=== PATIENT | male | born 1960 | race African-American/Black ===

== ENCOUNTER 2024-12-05 19:14 | Inpatient (IN) | payer OTHER ==
[~2024-12-05] VITALS: Ht 182.9 cm; Wt 112.5 kg
[2024-12-05 19:17] VITALS: O2SAT 99
[2024-12-05 19:44] LABS: BASOPHILS % 0.7 % (0.0-2.0); EOSINOPHILS % 2.9 % (0.0-5.0); HEMATOCRIT. 42.7 % (42.0-52.0); HEMOGLOBIN. 14.2 g/dL (14.0-18.0); LYMPHOCYTES % 46.9 % (20.0-50.0); MEAN CORPUSCULAR HEMOGLOBIN 27.6 pg (28.0-32.0); MEAN CORPUSCULAR HGB CONC 33.2 g/dL (31.0-37.0); MEAN CORPUSCULAR VOLUME 83.4 fL (80.0-94.0); MEAN PLATELET VOLUME 10.4 fl (7.4-10.4); MONOCYTES % 6.3 % (2.0-8.0); NEUTROPHILS % 43.2 % (40.0-76.0); PLATELET 104 x1000/uL (130-400); RED BLOOD CELL COUNT 5.12 mill/uL (4.7-6.1); RED CELL DISTRIBUTION WIDTH 15.2 % (11.6-14.6); WHITE BLOOD COUNT 4.5 x1000/uL (4.5-11.0)
[2024-12-05] MEDS: SODIUM CHLORIDE 0.9% 1,000 ML IV ONE (19:44)
[2024-12-05] MEDS: ONDANSETRON HCL 4MG/2ML INJ IV ONE (19:44)
[2024-12-05 19:54] LABS: CHLORIDE 103 mEq/L (98-107); POTASSIUM 3.1 mEq/L (3.5-5.1); SODIUM 140 mEq/L (136-145)
[2024-12-05 19:55] LABS: CALCIUM 8.9 mg/dL (8.7-10.4); CARBON DIOXIDE 23 mEq/L (21-32)
[2024-12-05 20:00] LABS: CREATININE 1.2 mg/dL (0.6-1.3); GLUCOSE 165 mg/dL (70-105); UREA NITROGEN BLOOD 12 mg/dL (9-23)
[2024-12-05 20:01] LABS: ETHANOL BLOOD < 10 mg/dL (<10)
[2024-12-05 20:02] LABS: ALANINE AMINOTRANSFERASE 23 IU/L (10-49); ALBUMIN 4.2 g/dL (3.2-4.8); ASPARTATE AMINOTRANSFERASE 25 IU/L (<34); BILIRUBIN DIRECT 0.2 mg/dL (<=3.0); BILIRUBIN TOTAL 0.7 mg/dL (0.1-1.0); PROTEIN TOTAL 7.3 g/dL (6.0-8.3)
[2024-12-05 20:27] LABS: TROPONIN I HIGH SENSITIVITY < 4 ng/L (3.0-53)
[2024-12-05 20:29] LABS: LACTIC ACID 4.1 mmol/L (0.4-2.0)
[2024-12-05] MEDS: POTASSIUM CHLORIDE 20MEQ/PACKET PO ONE (23:07)
[2024-12-05 23:34] VITALS: BP 142/84; PULSE 75; RESP 19; TEMP 36.5
[2024-12-06] VITALS (7 sets, daily range): BP systolic 121–137; BP diastolic 60–82; PULSE 54–75; RESP 17–20; TEMP 35.9–36.7; O2SAT 96–99
[2024-12-06] MEDS ORDERED: TAMS-11 MT (00:09)
[2024-12-06] MEDS: METOPROLOL TARTRATE 50MG TABLET PO SCH (01:33)
[2024-12-06 05:53] LABS: CARBON DIOXIDE 25 mEq/L (21-32); CHLORIDE 109 mEq/L (98-107); POTASSIUM 4.4 mEq/L (3.5-5.1); SODIUM 143 mEq/L (136-145)
[2024-12-06 05:54] LABS: CALCIUM 8.8 mg/dL (8.7-10.4)
[2024-12-06 05:59] LABS: CREATININE 0.8 mg/dL (0.6-1.3); GLUCOSE 91 mg/dL (70-105); TROPONIN I HIGH SENSITIVITY 9 ng/L (3.0-53)
[2024-12-06 06:00] LABS: LDL CHOLESTEROL 73 mg/dL (5-100); TRIGLYCERIDE 130 mg/dL (0-150); UREA NITROGEN BLOOD 10 mg/dL (9-23)
[2024-12-06 06:01] LABS: CHOLESTEROL 143 mg/dL (<200)
[2024-12-06 06:02] LABS: HDL CHOLESTEROL 38 mg/dL (>55)
[2024-12-06 06:03] LABS: THYROID STIMULATING HORMONE 1.05 uIU/mL (0.55-4.78)
[2024-12-06 06:25] LABS: BASOPHILS % 0.4 % (0.0-2.0); EOSINOPHILS % 0.9 % (0.0-5.0); HEMATOCRIT. 42.6 % (42.0-52.0); LYMPHOCYTES % 22.2 % (20.0-50.0); MEAN CORPUSCULAR HEMOGLOBIN 27.1 pg (28.0-32.0); MEAN CORPUSCULAR HGB CONC 32.8 g/dL (31.0-37.0); MEAN CORPUSCULAR VOLUME 82.5 fL (80.0-94.0); MEAN PLATELET VOLUME 11.2 fl (7.4-10.4); NEUTROPHILS % 70.5 % (40.0-76.0); PLATELET 113 x1000/uL (130-400); RED BLOOD CELL COUNT 5.16 mill/uL (4.7-6.1); RED CELL DISTRIBUTION WIDTH 15.1 % (11.6-14.6); WHITE BLOOD COUNT 5.5 x1000/uL (4.5-11.0)
[2024-12-06] MEDS: ASPIRIN 81MG TABLET PO SCH (08:08)
[2024-12-06] MEDS: ENOXAPARIN 30MG/0.3ML SYR SUBCUT SCH (08:10)
[2024-12-06] MEDS: TAMSULOSIN HCL 0.4MG SR CAPSULE PO SCH (21:11)
[2024-12-07 04:00] VITALS: BP 149/86; PULSE 87; RESP 20; TEMP 36; O2SAT 98
[2024-12-07] MEDS ORDERED: LOPERAMIDE HCL 2MG CAPSULE PO PRN (07:30)
[2024-12-07 08:00] VITALS: BP 142/76; PULSE 73; RESP 18; TEMP 36.5; O2SAT 99
[2024-12-07 08:35] VITALS: PULSE 73
[2024-12-07 10:08] LABS: *AMPHETAMINES SCREEN URINE NEGATIVE (NEGATIVE); *BARBITURATES SCREEN URINE NEGATIVE (NEGATIVE); *BENZODIAZEPINES SCREEN URINE NEGATIVE (NEGATIVE); *COCAINE SCREEN URINE NEGATIVE (NEGATIVE); CANNABINOID URINE SCREEN NEGATIVE (NEGATIVE); ECSTASY MDMA SCREEN URINE NEGATIVE (NEGATIVE); METHADONE URINE SCREEN NEGATIVE (NEGATIVE); OPIATES URINE SCREEN NEGATIVE (NEGATIVE); PHENCYCLIDINE URINE SCREEN NEGATIVE (NEGATIVE)
== END 2024-12-07 09:45 | disposition left against medical advice (07) | DRG 312 ==
LOC: ER 19:14 → 8WST 22:13
PROVIDERS: ADMIT Internal Medicine; ATTEND Internal Medicine
DX: R55 Syncope and collapse (principal); E87.20 Acidosis, unspecified; E87.6 Hypokalemia; I10 Essential (primary) hypertension; Z53.29 Procedure and treatment not carried out because of patient's decision for other reasons; R00.0 Tachycardia, unspecified
CPT/HCPCS: 36415; 71045; 80048; 80061; 80076; 80305; 80320; 83605; 83880; 84443; 84484; 85025; 93005; 99285; J1650; J2405; J7030; G0480